=== PATIENT | male | born 1955 | race Caucasian/White ===

== ENCOUNTER 2016-12-24 13:41 | Outpatient (CLI) | payer OTHER ==
--- NOTE | 2016-12-24 15:39 | RAD ---
FOUR VIEWS OF THE CERVICAL SPINE: HISTORY: Cervical disk degeneration, status post surgery eight weeks ago. COMPARISON: 11/13/2016 FINDINGS: AP, lateral, and open mouth odontoid views of the cervical spine show the patient to be status post anterior fusion of C5 to C7, with an anterior plate and screws. No perihardware lucency is identifi ed. The vertebral bodies demonstrate normal alignment without subluxation. No prevertebral soft ti ssue swelling is seen. IMPRESSION: Stable post surgical changes of the lower cervical spine without evidence of complication. POS: [facility]
== END 2016-12-24 13:42 | disposition home or self-care (01) ==
LOC: TBSIIMAG 13:41
PROVIDERS: ATTEND Neurological Surgery
DX: M50.30 Other cervical disc degeneration, unspecified cervical region (principal); Z98.1 Arthrodesis status
CPT/HCPCS: 72040

== ENCOUNTER 2017-02-23 13:22 | Outpatient (CLI) | payer OTHER ==
--- NOTE | 2017-02-23 17:14 | RAD ---
CERVICAL SPINE 3 VIEWS: Date: 02/23/17 HISTORY: Follow-up surgery. Cervical radiculopathy. COMPARISON: 12/24/16. FINDINGS: Anterior fusion changes noted. Anterior plate and screws again seen transfixing C5, C6, and C7 with i nterbody implants at these levels. No change in alignment. IMPRESSION: Postoperative findings show no significant change from 12/24/16 POS: [facility]
== END 2017-02-23 13:23 | disposition home or self-care (01) ==
LOC: TBSIIMAG 13:22
PROVIDERS: ATTEND Neurological Surgery
DX: M54.12 Radiculopathy, cervical region (principal); Z98.890 Other specified postprocedural states
CPT/HCPCS: 72040

== ENCOUNTER 2017-07-07 06:46 | Day surgery (SDC) | payer OTHER ==
[2017-07-06 08:57] VITALS: BMI 30.7
[2017-07-07 07:53] VITALS: BP 147/95; TEMP 97.8
[2017-07-07] MEDS ORDERED: Iopamidol-M 300 61% 15 ML VIAL ONE (08:25)
--- NOTE | 2017-07-07 09:07 | RAD ---
CERVICAL MYELOGRAM: Date 07/07/17 HISTORY: Cervical disc degeneration. Previous cervical fusion hardware. COMPARISON: None. EXPOSURE: 1.1 minutes. 368.9 mGy*cm^2. FINDINGS: 2 views cervical spine radiograph demonstrate cervical fusion hardware changes at C5, C6, and C7. No perihardware lucency. Disc prosthesis at C5-C6 and C6-C7. Vertebral body heights are maintained. No f racture. No malalignment. 2 views lumbar spine demonstrate five lumbar-type vertebral bodies. Vertebral body height is maintain ed. No fracture. Laminectomy defect at L4 is noted. Successful lumbar puncture for intrathecal contrast administration. A total of 8 mL of Isovue-M 300 c ontrast administered intrathecally. The patient tolerated the procedure well. No immediate or postpro cedure complications. TECHNIQUE: Consent obtained to perform a lumbar puncture for intrathecal contrast administration. The patient's back was evaluated The L2-L3 level was deemed appropriate. Skin was prepped and draped in the sterile fashion. 1% lidocaine, buffered with sodium bicarbonate, was used for local anesthesia. Under fluoro scopic guidance, a 22 gauge spinal needle was advanced into the CSF space. A total of 8 mL of Isovue- M 300 contrast was administered intrathecally. The patient tolerated the procedure well. No immediate or postprocedure complications. IMPRESSION: Successful lumbar puncture for cervical myelogram. POS: [facility]
--- NOTE | 2017-07-07 09:32 | CT ---
POST MYELOGRAM CERVICAL SPINE CT: Date: 07/07/17 HISTORY: Cervical disc degeneration. COMPARISON: None. TECHNIQUE: Post myelogram CT of the cervical spine is performed in the axial plane. Reformatted images are submi tted for interpretation. FINDINGS: There is an anterior fusion plate with transvertebral body screw at C5, C6, and C7. No perihardware l ucency. Disc prosthesis at C5-C6 and C6-C7. Atlantoaxial articulation is normal. Lateral masses of C1 and C2 articulate appropriately. There are degenerative changes of the facets with appropriate articulation. Odontoid process is intact. Occipit al condyles are unremarkable. There is no soft tissue abnormality. No prevertebral soft tissue swelling. Mild atherosclerosis of th e carotid arteries. Upper mediastinum and lung apices are unremarkable. C2-C3: No significant disc osteophyte complex. Minimal central disc osteophyte complex without significant c entral canal stenosis is noted. Neural foramina are patent bilaterally. C3-C4: There is a central disc osteophyte complex that abuts the thecal sac. Ventral subarachnoid space is m aintained. No significant central canal stenosis. There are degenerative changes of the right uncover tebral joint with mild right foraminal narrowing. There are degenerative changes in the left uncovert ebral joint and left facet hypertrophy with severe left foraminal narrowing. C4-C5: Broad based disc osteophyte complex abuts the thecal sac. Ventral subarachnoid space is maintained. M ild central canal stenosis. Mild bilateral foraminal narrowing. There is asymmetric left facet hypert rophy. C5-C6: There is a broad based osteophyte ridge which abuts the thecal sac. Ventral subarachnoid space is eff aced. Mild central canal stenosis. Degenerative changes of bilateral uncovertebral joints results in moderate bilateral foraminal narrowing. C6-C7: There is a central osteophyte that abuts the thecal sac. Mild central canal stenosis. Neural foramina are patent. C7-T1: No significant central canal stenosis. Foramina are patent. IMPRESSION: Degenerative changes and postoperative changes of the cervical spine as above. No high grade central canal stenosis. Varying degrees of foraminal stenosis due to degenerative change. POS: [facility]
== END 2017-07-07 09:30 | disposition home or self-care (01) ==
LOC: RAD 06:46
PROVIDERS: ATTEND Neurological Surgery
PROC: B02B1ZZ Computerized Tomography (CT Scan) of Spinal Cord using Low Osmolar Contrast (ICD-10-PCS; principal; 2017-07-07)
DX: M50.123 Cervical disc disorder at C6-C7 level with radiculopathy (principal); Z79.899 Other long term (current) drug therapy; Z88.2 Allergy status to sulfonamides; Z98.1 Arthrodesis status
CPT/HCPCS: 62302; 72126

== ENCOUNTER 2017-08-10 14:01 | Outpatient (CLI) | payer OTHER | END 2017-08-10 14:02 | disposition home or self-care (01) | LOC: BICRAD 14:01 | PROVIDERS: ATTEND Family Medicine | DX: R10.9 Unspecified abdominal pain (principal); M19.90 Unspecified osteoarthritis, unspecified site | CPT/HCPCS: 74022 ==

== ENCOUNTER 2018-11-24 09:30 | Outpatient (CLI) | payer OTHER ==
--- NOTE | 2018-11-24 10:16 | ULT ---
GALLBLADDER ULTRASOUND: HISTORY: Right upper quadrant abdominal pain FINDINGS: The liver demonstrates no evidence of intrahepatic biliary ductal dilatation. There is a 2.2 cm cyst in the right lobe of the liver close to the gallbladder. No gallstones, gallbladder wall thickening or pericholecystic fluid are seen. The right kidney is normal. The pancreas is not satisfactorily visualized due to overlying bowel gas. The common duct [id number] in diameter. No free fluid is seen in the Leonardo's pouch. IMPRESSION: Hepatic cyst.
== END 2018-11-24 09:31 | disposition home or self-care (01) ==
LOC: ULT 09:30
PROVIDERS: ATTEND Family Medicine
DX: R10.9 Unspecified abdominal pain (principal); K76.89 Other specified diseases of liver
CPT/HCPCS: 76705

== ENCOUNTER 2019-01-31 08:07 | Outpatient (CLI) | payer OTHER ==
--- NOTE | 2019-01-31 11:22 | MRI ---
MR OF THE PELVIS WITH AND WITHOUT CONTRAST INDICATION: Elevated PSA history of prostate biopsy 2 years prior COMPARISON: None TECHNIQUE: Multiplanar, multisequence MR images were obtained of the pelvis with and without IV contr ast. 20 cc of MultiHance was utilized for the examination. The examination was reviewed on a separate [employer] 3-D workstation for multiplanar metric evaluation. FINDINGS: Prostate size: The prostate measured 5.5 x 5.4 x 5.8cm. 86.71 cc. Peripheral zone: Within the central mid gland of the posterior zone there is a 1.0 x 0.9 cm a well en capsulated slightly heterogeneous but somewhat hypointense T2 signal, mildly hypointense ADC oval signal abnormality. There is no abnormal dynamic contrast enhancement associated with this lesion. Central zone: No suspicious signal abnormality or focal lesion. Neural vasculature: No evidence of neurovascular invasion Regional lymphadenopathy: None Dynamic contrast enhancement: Negative. Osseous structures: No suspicious osseous lesion is identified. Additional findings: None.. IMPRESSION: 1. PIRADS 3- Intermediate (the presence of clinically significant cancer is equivocal.) 2. Within the peripheral zone of the central gland, there is a well encapsulated heterogeneous oval l esion that demonstrates mild hypointensity on the ADC imaging. This can be seen with extruded BPH nodules; however, clinically significant cancer could also have a similar appearance. Biopsy may or m ay not be appropriate depending on patient's clinical scenario. Follow-up MR examination in 6 months may be helpful to document stability.
[2019-01-31] MEDS ORDERED: Gadobenate Dimeglumine 529 MG/1 ML (20ML VIAL) ONE (12:00)
== END 2019-01-31 08:08 | disposition home or self-care (01) ==
LOC: TBSIIMAG 08:07
PROVIDERS: ATTEND Urology
DX: R97.20 Elevated prostate specific antigen [PSA] (principal)
CPT/HCPCS: 72197; 82565; A9577

== ENCOUNTER 2022-02-02 09:40 | Outpatient (CLI) | payer MEDICARE, OTHER ==
[2022-02-02] MEDS ORDERED: Magnevist 469MG/ML 20 ML VIAL ONE (10:58)
== END 2022-02-02 09:41 | disposition home or self-care (01) ==
LOC: TBSIIMAG 09:40
PROVIDERS: ATTEND Urology
DX: R97.20 Elevated prostate specific antigen [PSA] (principal); N40.1 Benign prostatic hyperplasia with lower urinary tract symptoms
CPT/HCPCS: 72197; A9579

== ENCOUNTER 2022-07-20 12:48 | Outpatient (CLI) | payer MEDICARE, OTHER ==
[2022-07-20 14:23] LABS: Bilirubin Neg (Negative); Blood, Urine Negative (Negative); Clarity Clear (Clear); Glucose, Urine (Dipstick) Normal (Negative); Ketone, Urine Negative (Negative); Leukocyte Negative (Negative); Nitrite Negative (Negative); Protein, Urine (Dipstick) Negative (Neg-Trace); Urobilinogen Normal mg/dL (Less than 2)
[2022-07-20 14:35] LABS: Hemoglobin 14.2 g/dL (13.5-17.5); Mean Corpuscular HGB CONC 33.3 g/dL (32.0-36.0); Mean Corpuscular Hemoglobin 29.6 pg (27.0-33.0); Mean Platelet Volume 10.8 fl (7.4-10.4); Platelet Count 243 10x3/uL (150-450); RBC Distribution Width 13.2 % (11.5-14.5); White Blood Cell (WBC) Count 5.1 10x3/uL (3.5-10.5)
[2022-07-20 14:52] LABS: Anion Gap 15 mmol/L (10-20); BUN (Urea Nitrogen) 17 mg/dL (8.4-25.7); Calc. Creatinine Clearance 0 mL/min (70-130); Calcium 9.3 mg/dL (7.8-10.44); Carbon Dioxide 25 mmol/L (23-31); Chloride 107 mmol/L (98-107); Estimated GFR 81; Glucose 98 mg/dL (80-115); Potassium 4.6 mmol/L (3.5-5.1); Sodium 142 mmol/L (136-145)
[2022-07-20 15:01] LABS: PTT 34.2 sec (22.0-33.0); Prothrombin Time 10.7 sec (9.5-12.1)
[2022-07-20 16:27] LABS: Bacteria/HPF None Seen HPF (None Seen); RBC/HPF None Seen HPF (0-3); Squamous Epithelial None Seen HPF (0-3); WBC/HPF None Seen HPF (0-3)
== END 2022-07-20 12:49 | disposition home or self-care (01) ==
LOC: LABBT 12:48
PROVIDERS: ATTEND Urology
DX: Z01.818 Encounter for other preprocedural examination (principal); N40.1 Benign prostatic hyperplasia with lower urinary tract symptoms; R97.20 Elevated prostate specific antigen [PSA]; N53.12 Painful ejaculation; R35.0 Frequency of micturition; K42.9 Umbilical hernia without obstruction or gangrene; Z98.890 Other specified postprocedural states
CPT/HCPCS: 71046; 80048; 81001; 85027; 85610; 85730; 87081; 87086; 93005; 93010

== ENCOUNTER 2022-07-29 06:27 | Day surgery (SDC) | payer MEDICARE, OTHER ==
[2022-07-20 13:47] VITALS: BMI 30.9
[2022-07-29] MEDS ORDERED: Famotidine/PF 20 mg/2ml Vial ONE (06:45)
[2022-07-29] MEDS ORDERED: Midazolam HCl 2 mg/2 ml Vial ONE (06:45)
[2022-07-29] MEDS ORDERED: fentaNYL 50 mcg/mL 1 mL Vial ONE (06:45)
[2022-07-29] MEDS ORDERED: Dexmedetomidine 200 MCG/2 ML VIAL ONE (06:45)
[2022-07-29] MEDS ORDERED: Lidocaine 1% MPF 2 ML VIAL ONE (07:24)
[2022-07-29] MEDS ORDERED: Levofloxacin 500 mg/D5W 100 ml Premix Bag ONE (07:25)
[2022-07-29] MEDS ORDERED: Sodium Chloride 0.9% 100 ML ONE (07:25)
[2022-07-29] MEDS ORDERED: cefTRIAXone (ROCEPHIN) 2 GM VIAL ONE (07:25)
[2022-07-29] MEDS ORDERED: Ondansetron PF 4 MG/2 ML Vial ONE (08:12)
[2022-07-29] MEDS ORDERED: Lidocaine 1% PF 5 ML VIAL ONE (08:19)
[2022-07-29] MEDS ORDERED: Phenazopyridine HCl 100 MG TAB ONE (09:12)
[2022-07-29] MEDS ORDERED: Bupivacaine/Epinephrine 0.25% 30 ML VIAL ONE (12:56)
[2022-07-29] MEDS ORDERED: Vancomycin 1 GM VIAL ONE (12:58)
== END 2022-07-29 11:15 | disposition home or self-care (01) ==
LOC: SDC 06:27
PROVIDERS: ATTEND Urology
PROC: 0VB07ZX Excision of Prostate, Via Natural or Artificial Opening, Diagnostic (ICD-10-PCS; principal; 2022-07-29)
DX: N42.32 Atypical small acinar proliferation of prostate (principal); N40.1 Benign prostatic hyperplasia with lower urinary tract symptoms; N13.8 Other obstructive and reflux uropathy; R35.0 Frequency of micturition; N32.89 Other specified disorders of bladder; N53.12 Painful ejaculation; I10 Essential (primary) hypertension; K21.9 Gastro-esophageal reflux disease without esophagitis; M51.36 Other intervertebral disc degeneration, lumbar region; G89.29 Other chronic pain; M54.50 Low back pain, unspecified; Z79.899 Other long term (current) drug therapy; Z88.2 Allergy status to sulfonamides
CPT/HCPCS: 55700; J3010; 88341; 88342; G0416; J0696; J1956; J2250; J2405; J3370; J3490; S0028

== ENCOUNTER 2024-03-24 11:01 | Outpatient (CLI) | payer MEDICARE, OTHER | END 2024-03-24 11:02 | disposition home or self-care (01) | LOC: BICCT 11:01 | PROVIDERS: ATTEND Family Medicine | DX: I71.20 Thoracic aortic aneurysm, without rupture, unspecified (principal); K76.89 Other specified diseases of liver; R91.1 Solitary pulmonary nodule | CPT/HCPCS: 71250 ==

== ENCOUNTER 2024-11-28 09:53 | Outpatient (CLI) | payer MEDICARE, OTHER | END 2024-11-28 09:54 | disposition home or self-care (01) | LOC: BICCT 09:53 | PROVIDERS: ATTEND Family Medicine | DX: R91.1 Solitary pulmonary nodule (principal) | CPT/HCPCS: 71250 ==